=== PATIENT | male | born 1975 | race Caucasian/White ===

== ENCOUNTER → 2021-01-12 10:02 | Outpatient (CLI) | payer OTHER, SELFPAY ==
--- NOTE | ~2021-01-12 | XR_ITS ---
EXAMINATION: XR wrist LT min 3V DATE: 01/12/2021 10:50 INDICATION: Left wrist pain and numbness TECHNIQUE: Posteroanterior, ulnar deviation, oblique, and lateral views of the left wrist were obtain ed. 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 Alignment is normal. No fracture. Joint spaces are nor mal. Soft tissues are unremarkable. IMPRESSION: 1. 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 Otherwise normal left wrist radiographs. Reviewed, dictated and finalized at location A. IMPRESSION: 1. 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 Otherwise normal left wrist r adiographs.
--- NOTE | ~2021-01-12 | XR_ITS ---
EXAMINATION: XR knee LT 3V DATE: 01/12/2021 10:51 INDICATION: Left knee pain TECHNIQUE: Anteroposterior, 2 oblique and crosstable lateral views of the left knee were obtained COMPARISON: None. FINDINGS: Alignment of the left knee is normal. No fracture. No joint effusion/layering lipohemarthrosis. Soft tissues are unremarkable. IMPRESSION: 1. Normal left knee radiographs Reviewed, dictated and finalized at location A.
== END ==
LOC: EXPTRAD 10:09
PROVIDERS: PCP Nurse Practitioner Family; Visit Provider Nurse Practitioner Family
DX: M25.532 Pain in left wrist (principal); M25.562 Pain in left knee; R20.0 Anesthesia of skin
CPT/HCPCS: 73110; 73562

== ENCOUNTER 2021-03-23 08:49 | Outpatient (CLI) | payer OTHER, SELFPAY ==
--- NOTE | 2021-03-23 11:00 | NEURO_ITS ---
Impression: # Complains of left 4th and 5th finger numbness. # Subtle evolving left Carpal Tunnel Syndrome. # No ulnar neuropathy. # Normal needle/EMG exam. # Clinical correlation recommended. Nerve Conduction Studies Anti Sensory Summary Table Stim Site NR Peak (ms) P-T Amp (?V) Site1 Site2 Delta-P (ms) Dist (cm) Indra (m/s) Left Median Anti Sensory (2-3nd Digit) Wrist 3.0 67.9 Wrist 2-3nd Digit 3.0 14.0 47 Wrist 3.0 29.8 Wrist 2-3nd Digit 3.0 14.0 47 Left Radial Anti Sensory (Base 1st Digit) Wrist 2.0 28.1 Wrist Base 1st Digit 2.0 0.0 Left Ulnar Anti Sensory (5th Digit) Wrist 2.5 49.8 Wrist 5th Digit 2.5 14.0 56 Motor Summary Table Stim Site NR Onset (ms) O-P Amp (mV) Site1 Site2 Delta-0 (ms) Dist (cm) Indra (m/s) Left Median Motor (Abd Poll Brev) Wrist 3.7 4.7 Elbow Wrist 5.1 29.0 57 Elbow 8.8 4.1 Left Ulnar Motor (Abd Dig Minimi) Wrist 2.3 7.8 A Elbow Wrist 5.4 30.0 56 A Elbow 7.7 4.8 F Wave Studies NR F-Lat (ms) L-R F-Lat (ms) Left Median (Mrkrs) (Abd Poll Brev) 28.77 Left Ulnar (Mrkrs) (Abd Dig Min) 29.06 EMG Side Muscle Nerve Root Ins Act Fibs Amp Dur Recrt Comment Left 1stDorInt Ulnar C8-T1 Nml Nml Nml Nml Nml Left Ext Indicis Radial (Post Int) C7-8 Nml Nml Nml Nml Nml Left Ext Digitorum Radial (Post Int) C7-8 Nml Nml Nml Nml Nml Left BrachioRad Radial C5-6 Nml Nml Nml Nml Nml Left PronatorTeres Median C6-7 Nml Nml Nml Nml Nml Left Abd Poll Brev Median C8-T1 Nml Nml Nml Nml Nml MTDD
== END 2021-03-23 08:50 | disposition home or self-care (01) ==
PROVIDERS: PCP Family Medicine; Visit Provider Nurse Practitioner Family
DX: R20.0 Anesthesia of skin (principal); G56.02 Carpal tunnel syndrome, left upper limb
CPT/HCPCS: 95886; 95909